=== PATIENT | male | born 1970 | race Caucasian/White ===

== ENCOUNTER → 2021-06-01 14:23 | Outpatient (CLI) | payer OTHER, SELFPAY ==
--- NOTE | 2021-06-01 14:25 | DI.CT.S_ITS ---
PROCEDURE: CT LE LT W CON INDICATIONS: CALC FX Displaced fracture left calcaneus TECHNIQUE: Noncontrast 1-1.5 mm axial sections acquired from above the tibiotalar joint to the bottom of the calcaneus, with coronal and sagittal reformats. COMPARISON: Outside Film, CR, XR FOOT 3+ VIEWS LEFT, 05/28/2021, 14:08. FINDINGS: Image quality: Excellent. Bones: As seen on previous left ankle and foot radiograph, there is an acute comminuted fracture involving entire calcaneus with fracture line seen extending to superior cortex of anterior and posterior calcaneus, posterior cortex of calcaneus near its Achilles tendon insertion and plantar aspect of posterior calcaneus near plantar fascia insertion. There are displacements at calcaneal fracture site with up to 8 mm diastasis in posterior medial aspect of calcaneal fracture site. Slight medial and laterally displaced fractured fragments are also seen. There is 5 mm depression in posterior superior calcaneal fracture site adjacent to posterior subtalar joint. No other fracture or dislocation is seen. No suspicious intraosseous lesion. Mild midfoot and hindfoot joint osteoarthritic changes are seen. Soft tissues: There is significant soft tissue swelling and edema surrounding calcaneal fracture site extending to dorsal and lateral aspect of midfoot. No abnormal soft tissue calcifications are seen. Small to moderate tibiotalar and subtalar joint effusion is seen, no calcified intra-articular loose body. Plantar fascia is grossly intact. Achilles tendon is intact. IMPRESSION: 1. Acute comminuted and slightly displaced fractures involving entire calcaneus as described above. No other fracture or dislocation. 2. Soft tissue swelling and edema surrounding ankle and hindfoot extending to dorsal and lateral aspect of midfoot. No abnormal soft tissue calcifications. No calcified intra-articular loose body. No gross full-thickness tendon rupture. Dictated by: Aureliano Lawrence M.D. on 06/01/2021 at 15:14 Approved by: Aureliano Lawrence M.D. on 06/01/2021 at 15:18
== END ==
PROVIDERS: Referring Provider Orthopaedic Surgery; Visit Provider Orthopaedic Surgery
DX: S92.012A Displaced fracture of body of left calcaneus, initial encounter for closed fracture (principal); M79.89 Other specified soft tissue disorders; X58.XXXA Exposure to other specified factors, initial encounter
CPT/HCPCS: 73700

== ENCOUNTER → 2021-06-10 09:28 | Outpatient (CLI) | payer OTHER, SELFPAY ==
[2021-06-10 11:24] LABS: COVID19 -Nasal RAPID Negative (Negative)
== END ==
PROVIDERS: Visit Provider Family Medicine Sleep Medicine
DX: Z20.822 Contact with and (suspected) exposure to COVID-19 (principal)
CPT/HCPCS: 87635; C9803

== ENCOUNTER 2021-06-11 08:47 | Day surgery (SDC) | payer OTHER, SELFPAY ==
[2021-06-04 13:25] VITALS: BMI 28.0
[2021-06-11] VITALS (7 sets, daily range): BP systolic 116–132; BP diastolic 66–99; PULSE 87–99; RESP 12–16; TEMP 36.2–36.3; O2SAT 96–100; BMI 28.0
[2021-06-11] MEDS: LACTATED RINGERS 1,000 ML 42 ML IV ×2 (09:18→12:38)
--- NOTE | 2021-06-11 10:07 | PM.PREOP ---
Pre-operative Note COVID-19 COVID-19 status: Negative Result date/Date tested (Pos, Neg/Pending): 06/10/21 Criteria for continued procedure: Possibility delay results in more complex future surgery or treatment, Increased loss of function and Delay expected to result in less-positive ultimate med/surg outcome Interval Note History & Physical reviewed/Exam performed by Physician: Yes Changes to H&P: No
--- NOTE | 2021-06-11 10:45 | SUR.PREOP ---
Addendum entered by Morenita Vickers R.N. 06/11/21 10:50: meds used during block: xylocaine 2% WITH Epinephrine- 1:100,OOO For local, Ropivicaine 0.5% -20ml with dexamethasone 10mg per each neve block by Dr Espana. Original Note: 06/11/2021-1030am. Pt moved to block room for nerve blocks by Dr Espana. Monitors and 2 liters nasal cannula applied. Dr Espana confirmed with pt and Rn, Popiteal/saphaneous block left (time out). Premed by Dr Espana done. patietn relaxed. Popiteal nerve block done at 1035am, saphanous done at 1035. Monitored vs every 5 minutes-no changes-see strip on progress sheet for vitals and ekg strip/NSR. 1038-procedure done, pt tolerated well. off monitors and oxygen , to OR directly.
[2021-06-11] MEDS: CEFAZOLIN 2 GM/20 ML SYRINGE IV (10:47)
--- NOTE | 2021-06-11 11:24 | PM.PROC.1 ---
Procedures Date/Time Date of procedure: 06/11/21 Time of procedure: 10:10 General Procedure description: Ultrasound guided popliteal sciatic AND saphenous (adductor canal) nerve blocks for post op pain control after left calcaneal ORIF by Dr. Sharma. Risk and benefits of procedure discussed with patient. ASA monitoring applied to patient. Oxygen given via nasal cannula. 2 mg Versed and 50 mcg fentanyl given for procedural sedation. Skin site was prepped with chlorhexidine and allowed to fully dry. Sterile gloves, mask, hat and probe cover were used to maintain sterility. 2% lidocaine and 30ga needle was used to make a small skin wheal at needle insertion site. Under ultrasound guidance, a 21ga 100mm Pajunk needle was directed near the division of the sciatic nerve into tibial and peroneal nerve in the popliteal fossa (lateral approach). Patient reported no parasthesias. After negative aspiration, 20 mL 0.5% ropivacaine and 10mg dexamethasone were injected around sciatic nerve. Similarly, the adductor canal was accessed under US guidance using a 100mm Pajunk needle. After negative aspiration, 20mL 0.5% ropivacaine with 10mg dexamethasone was injected. No parathesias. Patient tolerated procedure well. Upper photo: sciatic nerve at popliteal fossa; Lower photo: adductor canal at mid thigh
--- NOTE | 2021-06-11 11:29 | SUR.OPER ---
Lateral on a sotelo bag, head on pillow, gel axillary roll in place, bottom leg bent with gel pad under knee to foot, upper leg straight and supported with pillows. Upper arm supported by pillows and secured over bottom arm to padded arm board. Safety belt at hip, tape over blanket lower legs.
[2021-06-11] MEDS: BUPIVACAINE 0.25% (PF) 30 ML, EPINEPHrine 0.15 MG INJ (11:35)
--- NOTE | 2021-06-11 13:20 | DI.RAD.S_ITS ---
PROCEDURE: XR ANKLE LT MIN 3V INDICATIONS: LEFT HEAL FX REPAIR TECHNIQUE: 11 intraoperative fluoroscopic views of the ankle were acquired. COMPARISON: None. FINDINGS: Intraoperative fluoroscopic images of left ankle shows internal fixation of calcaneus with anatomic calcaneal alignment. IMPRESSION: Fluoro guidance was provided intraoperatively for ORIF of left calcaneus. Dictated by: Aureliano Lawrence M.D. on 06/11/2021 at 15:11 Approved by: Aureliano Lawrence M.D. on 06/11/2021 at 15:22
--- NOTE | 2021-06-11 13:37 | PM.OP.1 ---
Operative Date/Time/Diagnoses Date of procedure: 06/11/21 Time of procedure: 11:00 Pre-op diagnosis: Left intra-articular calcaneus fracture S92.012A Post-op diagnosis: same Procedure & Clinicians Procedure: Open reduction internal fixation left calcaneus fracture CPT code 69347 Same procedure as scheduled: Yes Indications: Patient is a 50-year-old male that fell off a ladder he sustained a closed displaced intra-articular left calcaneus fracture with 4-5 mm of displacement and depression of the lateral half of the posterior facet with varus calcaneal fracture pattern. Does not have any hard contradiction to surgery. We discussed options for treatment including non operative treatment and surgical options. He has been indicated for operative intervention open reduction internal fixation of his displaced intra-articular calcaneus fracture to restore alignment reduce the risk of developing posttraumatic arthritis and progressive malfunction. The risks and benefits of the procedure have been discussed with the patient given the opportunity to ask questions. The risks of surgery include but are not limited to infection, malunion, nonunion, persistence of pain, damage to nerves and blood vessels, posttraumatic arthritis, DVT, PE, cardiopulmonary complications and . The patient expressed a thorough understanding of the risks and benefits of surgery and has elected to proceed. Consent was signed in the office. Surgeon: Mary Sharma Click Yes if Unassisted: Yes Anesthesia Type: General, Peripheral nerve block and Local Operative Notes Findings: Displaced intra-articular calcaneus fracture with a depressed and rotated lateral half of the posterior facet. This was disimpacted and elevated and reduced. Additionally hindfoot was in varus. Combination of a 2.4 wire as a joystick and manipulation through the fracture restored hindfoot alignment. Fracture was stabilized with 1st a 4.0 cannulated screw across the posterior facet to lag the fracture then a left calcaneus sinus tarsi plate from the Arthrex set and a separate 3.5 screw across the tuberosity component. Closure Type: primary Specimen(s): none sent Prosthetic devices, grafts, tissues, transplants, or devices: Arthrex calcaneus percutaneous plate standard left with 3.5 nonlocking and locking screws 1x4.0 cannulated partially-threaded lag screw 1x3.5x54 mm screw across the tuberosity Estimated Blood Loss (mL): 30 Blood products transfused: none Tourniquet time (min): 87 Procedure in detail: Patient was seen in the preoperative area the site of surgery and informed consent were confirmed. The site of surgery was marked in the patient questions were answered. A regional anesthetic block was placed by the anesthesia team for postoperative pain control. Patient was then brought to the operating room by the anesthesia team positioned supine on the operative table. General endotracheal anesthesia was obtained. Tourniquet was placed on the upper aspect of the thigh and well padded. An SCD placed on the contralateral lower extremity. The patient's operative leg was then prepped and draped in the standard sterile fashion. Formal time-out procedure was performed confirming the patient's side and site of surgery and administration of appropriate preoperative antibiotics. Implants were present in the room and accounted for. Exsanguination with an Esmarch tourniquet was then inflated to 250 mmHg. The C-arm was brought in and initial images in the lateral, Broden and axial views were obtained. There was a depressed fracture of the lateral aspect of the posterior facet as well as some hindfoot varus. A sinus Tarsi approach was used for this intra-articular fracture. First step was that a at 2.4 K-wire was placed in the tuberosity from posterior lateral to distal medial to span the tuberosity fracture as depicted on the CT this ended just before the main fracture line and was provided joystick in the tuberosity. Then the sinus tarsi approach was performed with a incision from the distal tip of the fibula in line with the 4th ray. This was taken down through the skin and subcutaneous tissue. The fascia over the EDB was exposed and then the ED be was cut and reflected distally and temporarily tied with a 2-0 PDS to retracted out of the way. This exposed the sinus tarsi. A rongeur was used to remove soft tissue and expose the subtalar joint. The depressed and rotated lateral aspect of the posterior facet was visualized. The soft tissue dissection tool was used to dissect under the peroneal tendons and create a pocket for the lateral plate. Next a Cullman elevator was inserted in through the main fracture fragment and the hindfoot was brought into valgus using the Steinmann pin as a joystick to reduce the varus into neutral hindfoot alignment and then a no other K-wire was aimed and advanced across the tuberosity along the plantar calcaneus holding the hindfoot alignment. At this point the elevator was used to de rotate and elevate the lateral half of the posterior facet and reduce the articular part of the fracture. This was then pinned with 2 guide K-wires for the 4.0 cannulated screws. Next 1 of the K-wires was drilled over and a 4.0 partially threaded cannulated lag screw was placed across the posterior facet to reduce the posterior facet fracture component. Fluoroscopic the was checked on Broden views confirming excellent reduction of the posterior facet. Next the voices for the percutaneous plate were placed along the calcaneus and a lateral view was taken to determine appropriate plate choice. The standard plate was selected. This was slid down into the tissue pocket and care was taken to make sure the the peroneal tendons were well protected. The plate was provisionally pinned and then checked on imaging. Care was taken to make sure this was not crossing the calcaneal cuboid joint. Next 2 nonlocking cortical screws were placed anteriorly and posterior in the plate approximating to the bone then additional plate holes were filled with locking screws. Finally, to secure the separate tuberosity fragment a guidewire for the 4.0 cannulated screws was drilled across this and parallel to the 2.4 Steinmann pin that was holding the hindfoot alignment this was then overdrilled with a cannulated technique and then a solid 3.5 cortical screw 54 mm was placed. Final fluoroscopic imaging in lateral, Broden, axial and foot AP view confirmed appropriate alignment placement of hardware and anatomic reduction of the left calcaneus. The wound was thoroughly irrigated and the incision was repaired in a layered fashion using 0 Vicryl 2-0 Vicryl 4-0 Monocryl , 4-0 and 3-0 nylon. Xeroform gauze Webril and Bulky Hearn splint were applied. Patient was woken from anesthesia and taken to recovery room. Complications: none Post-operative Condition: stable Disposition: PACU Plan for aftercare: Nonweightbearing left lower extremity. Elevate above the heart level for as much as possible for the 1st 2 weeks after surgery. Prescriptions for pain medication has been sent to the pharmacy as well as anti nausea medication. Patient had a postoperative block that should help with pain control for 12-48 hours. Patient will start aspirin for DVT prophylaxis on postop day 1. Patient has no personal or family history of blood clots or hypercoagulability. Follow-up in 2 weeks.
== END 2021-06-11 15:00 | disposition home or self-care (01) ==
LOC: OR 08:48
PROVIDERS: PCP Student in an Organized Health Care Education/Training Program; Referring Provider Orthopaedic Surgery Foot and Ankle Surgery; Visit Provider Orthopaedic Surgery Foot and Ankle Surgery
PROC: (CPT 28415; principal; 2021-06-11 10:00)
DX: S92.012A Displaced fracture of body of left calcaneus, initial encounter for closed fracture (principal); W11.XXXA Fall on and from ladder, initial encounter; I10 Essential (primary) hypertension
CPT/HCPCS: 28415; 64450; 73610; 76000; J0171; J0690; J1100; J2250; J2704; J3010

== ENCOUNTER → 2022-06-11 10:06 | Outpatient (CLI) | payer OTHER, SELFPAY ==
[2022-06-11 11:52] LABS: Alanine Aminotransferase 42 IU/L (<50); Albumin 4.5 g/dL (3.5-5.0); Albumin Globulin Ratio 1.5 (1.0-2.8); Alkaline Phosphatase 69 U/L (38-126); Aspartate Aminotransferase 31 IU/L (17-59); BUN Creatinine Ratio 19.7 (6-22); Bilirubin Total 0.7 mg/dL (0.2-1.3); Blood Urea Nitrogen 14 mg/dL (9-20); Calcium 9.1 mg/dL (8.4-10.2); Carbon Dioxide 26 mmol/L (22-32); Chloride 101 mmol/L (98-107); Cholesterol 153 mg/dL (140-199); Estimated Glomerular Filt Rate > 60 mL/min (>60); Glucose 117 mg/dL (70-100); HDL Cholesterol 38 mg/dL (40-60); HEMOLYSIS < 15 (0-50); LDL Cholesterol Calculated 92 mg/dL (<100); Potassium 4.4 mmol/L (3.4-5.1); Sodium 139 mmol/L (137-145); Total Protein 7.5 g/dL (6.3-8.2); Triglycerides 114 mg/dL (35-150); Uric Acid 8.3 mg/dL (3.5-8.5)
== END ==
PROVIDERS: PCP Family Medicine; Referring Provider Family Medicine; Visit Provider Family Medicine
DX: E78.5 Hyperlipidemia, unspecified (principal); I10 Essential (primary) hypertension; M10.9 Gout, unspecified
CPT/HCPCS: 36415; 80053; 80061; 84153; 84550

== ENCOUNTER 2022-08-17 09:42 | Day surgery (SDC) | payer OTHER, SELFPAY ==
[2022-08-17] VITALS (7 sets, daily range): BP systolic 112–132; BP diastolic 86–97; PULSE 62–79; RESP 11–18; TEMP 36.1–36.6; O2SAT 95–100; BMI 28.0
--- NOTE | 2022-08-17 | PATH_ITS ---
[facility] Accession Number: [id number] No. of containers..02 Tissue . 01 Material submitted: . PART A: colon - DESCENDING COLON POLYP X2 PART B: rectum - RECTAL POLYP . 01 Diagnosis: A. Descending Colon Polyps: Serrated lesion, favor sessile serrated adenoma x1. Hyperplastic polyp x1. . B. Rectal Polyp: Hyperplastic polyp. MRV 08/19/2022 1241 Local . 01 Electronically signed: . Davian Tillman MD, PhD, Pathologist NPI- [id number] . 01 Gross description: . Part A: DESCENDING COLON POLYP X2: Received in formalin are 2 fragment(s) of rutledge, soft tissue measuring 1.0 x 0.2 x 0.2 cm to 0.2 x 0.2 x 0.2 cm submitted entirely in 1 cassette(s) Part B: RECTAL POLYP: Received in formalin is 1 fragment(s) of rutledge, soft tissue measuring 0.2 x 0.2 x 0.1 cm submitted entirely in 1 cassette(s) /CPE 08/18/2022 0643 Local . 01 Pathologist provided ICD-10: D12.4, K62.1 . 01 CPT . 959567, 385132 Specimen Comment: A courtesy copy of this report has been sent to [phone] Performed at: 01 [facility] [address] [place] [address], [place], [place] [id number] MD Jose A Salinas MD Phone: [phone]
[2022-08-17] MEDS: LACTATED RINGERS 1,000 ML 200 ML IV (10:32)
--- NOTE | 2022-08-17 11:47 | PM.HP.1 ---
History of Present Illness History of Present Illness Date Patient Seen: 08/17/22 Chief complaint: Colonoscopy Narrative: The patient presents for colorectal screening. They have never had any previous examination for such. No personal or family history of colon cancer. On further history denies any recent gastrointestinal symptoms. No nausea, vomiting, abdominal pain, loss of appetite, unexplained weight loss, change in bowel habits, or blood per rectum. [facility] Medical History Chicken pox (~1979) Fall from ladder (~05/2021) Fractures Gout (~2017) HTN (hypertension) (~2012) Hyperlipidemia Preventative health care Surgical History Anesthesia Broken foot Family History Father History of heart disease Hypertension Hyperlipidemia Mother Cancer Grandfather History of heart disease Grandmother History of heart disease Grandfather History of heart disease Grandmother History of heart disease Social History household members: spouse Smoking Status: Former smoker alcohol intake: current Meds Home Medications and Allergies Home Medications Medication Instructions Recorded Confirmed Type lisinopril 20 mg tablet 20 mg PO DAILY 06/11/21 06/11/22 History allopurinol 300 mg tablet 300 mg PO DAILY #90 tabs 06/11/22 Rx atorvastatin 20 mg tablet 20 mg PO 06/11/22 06/11/22 History Allergies Allergy/AdvReac Type Severity Reaction Status Date / Time No Known Drug Allergies Allergy Verified 06/11/22 08:47 Exam Vital Signs (past 8 hours): - 08/17/22 10:37 Temperature 97 F L Pulse Rate 79 Respiratory Rate 18 Blood Pressure 132/95 H Pulse Oximetry 98 Oxygen Delivery Method Room Air Oxygen Delivery Method Room Air Narrative Exam Narrative: General adult man alert oriented no acute distress Abdomen soft nontender nondistended Assessment & Plan Assessment & Plan narrative: The patient requires colorectal screening and colonoscopy is recommended. Technical details were discussed. Risks, benefits, alternatives explained. Risks including but not limited to myocardial infarction, aspiration, bleeding, pain, missed lesion, incomplete examination, need for further radiographic studies, colonic perforation, and need for major abdominal surgery were discussed. All questions were answered to their satisfaction, and they are in agreement with this plan.
--- NOTE | 2022-08-17 12:21 | PM.OP.COLON ---
Operative Date/Time/Diagnoses Date of procedure: 08/17/22 Time of procedure: 12:21 Pre-op diagnosis: Colorectal screening Post-op diagnosis: other (Colonic polyps x3) Procedure & Clinicians Study performed: Colonoscopy and polypectomy Same procedure as scheduled: Yes Indications: Colorectal screening Surgeon: Ruben Rebollar Procedure Notes Procedure in detail: The history and physical was performed/updated and the patient is ASA class is 2. The procedure was discussed in detail with the patient. Potential risks complications including infection, bleeding, missed diagnosis, perforation, need for surgery, and were explained. Their questions were answered and informed consent was obtained. Patient was brought to the procedure room and placed standard monitoring equipment. The patient's vital signs were monitored continuously throughout the entire procedure. Prior to starting time-out was performed. The patient was placed in the left lateral recumbent position. Procedural sedation was administered by anesthesia. Examination began with a thorough inspection of the perianal area there was no evidence of fissures, fistulae, external hemorrhoids or cutaneous malignancy. The colonoscopy scope was then placed into the anal canal and was advanced to the cecum, which was identified by the ileocecal valve, the appendiceal orifice and the confluence of the taenia. The scope was then slowly withdrawn examining colon thoroughly in all directions, irrigating it of any residual stool. Within the descending colon there were two 5 mm polyps both removed with cold snare. In the distal rectum there was a 3 mm polyp removed with cold snare. The remainder of the colon was unremarkable. The patient tolerated the procedure well. They will be discharged once criteria are met. The prep was of good/excellent quality. The withdrawl time was 11 minutes. Specimen(s): other (Descending colon and rectal polyps) Impression: Colonic polyps x3 Post-procedure Plan for aftercare: Follow-up is dependent on pathology findings Disposition: same day surgery
== END 2022-08-17 13:05 | disposition home or self-care (01) ==
PROVIDERS: PCP Family Medicine; Referring Provider Surgery; Visit Provider Surgery
PROC: 0DJD8ZZ Inspection of Lower Intestinal Tract, Via Natural or Artificial Opening Endoscopic (ICD-10-PCS; CPT 45378; principal; 2022-08-17 10:45)
DX: Z12.11 Encounter for screening for malignant neoplasm of colon (principal); D12.4 Benign neoplasm of descending colon; K62.1 Rectal polyp
CPT/HCPCS: 45385; J2704; J3010

== ENCOUNTER 2024-02-21 17:47 | Emergency (ER) | payer OTHER, SELFPAY ==
[2024-02-21] VITALS (8 sets, daily range): BP systolic 107–157; BP diastolic 77–98; PULSE 63–79; RESP 18; TEMP 36.6–36.9; O2SAT 97–99; BMI 26.9
[2024-02-21 22:19] LABS: Add Manual Diff / Slide Review NO; Basophils Absolute Auto 100 /uL (0-100); Basophils Percent Auto 0.7 % (0-2); Eosinophils Absolute Auto 200 /uL (0-450); Eosinophils Percent Auto 2.5 % (2-4); Hematocrit 43.5 % (41-53); Hemoglobin 15.1 g/dL (13.5-17.5); Lymphocytes Absolute Auto 1700 /uL (1100-4500); Lymphocytes Percent Auto 20.9 % (25-40); Mean Corpuscular HGB Conc 34.7 % (30-36); Mean Corpuscular Hemoglobin 31.8 PG (26-34); Mean Corpuscular Volume 91.8 fL (80-100); Monocytes Absolute Auto 900 /uL (0-900); Monocytes Percent Auto 11.3 % (3-14); Neutrophils Absolute Auto 5400 /uL (1500-7000); Neutrophils Percent Auto 64.6 % (50-75); Platelet Count 208 X10^3/uL (150-400); Red Blood Cell Count 4.74 X10^6/uL (4.5-5.9); Red Cell Distribution Width 13.4 % (11.6-14.8); White Blood Cell Count 8.3 X10^3/uL (4.5-11.0)
[2024-02-21 22:28] LABS: Alanine Aminotransferase 35 IU/L (<50); Albumin 4.2 g/dL (3.5-5.0); Albumin Globulin Ratio 1.6 (1.0-2.8); Alkaline Phosphatase 54 U/L (38-126); Aspartate Aminotransferase 33 IU/L (17-59); BUN Creatinine Ratio 23.9 (6-22); Bilirubin Total 0.7 mg/dL (0.2-1.3); Blood Urea Nitrogen 17 mg/dL (9-20); Calcium 9.4 mg/dL (8.4-10.2); Carbon Dioxide 26 mmol/L (22-32); Chloride 103 mmol/L (98-107); Estimated Glomerular Filt Rate > 60 mL/min (>60); Globulin 2.7 g/dL (1.7-4.1); Glucose 108 mg/dL (70-100); HEMOLYSIS 22 (0-50); Lipase 119 U/L (23-300); Potassium 3.6 mmol/L (3.4-5.1); Sodium 138 mmol/L (137-145); Total Protein 6.9 g/dL (6.3-8.2)
--- NOTE | 2024-02-21 22:51 | ED_ITS ---
HPI - Nausea/Vomiting/Diarrhea General Chief complaint: Nausea/Vomiting/Diarrhea Stated complaint: diarrhea for two weeks Time Seen by Provider: 02/21/24 21:39 Source: patient Mode of arrival: Ambulatory History of Present Illness HPI Narrative: Patient is a 53-year-old male who is here for evaluation of 2 weeks of diarrhea. No recent travel. No recent antibiotics. No abdominal pain. No vomiting. No fevers. Has been seen at an outside walk-in clinic. Had stool samples done that were negative. A stool culture still pending. Has not tried any antidiarrheal medicines. Contacted his primary doctor's office nurse today who advised that he come to the emergency department for evaluation. Related Data Previous Rx's Medication Instructions Recorded atorvastatin 20 mg tablet 20 mg PO BEDTIME #90 tabs 03/12/23 lisinopril 20 mg tablet 20 mg PO DAILY #90 tabs 03/12/23 allopurinol 300 mg tablet 300 mg PO DAILY #90 tabs 06/30/23 Allergies Allergy/AdvReac Type Severity Reaction Status Date / Time No Known Drug Allergies Allergy Verified 06/17/23 08:38 Review of Systems Review of Systems ROS Unobtainable: All systems reviewed & are unremarkable except as noted in HPI and below Patient History Medical History Dysplastic colon polyp Well adult exam Fractures Chicken pox (~1979) Preventative health care Gout (~2017) Hyperlipidemia Fall from ladder (~05/2021) HTN (hypertension) (~2012) Surgical History Anesthesia Broken foot Family History Father History of heart disease Hypertension Hyperlipidemia Mother Cancer Grandfather History of heart disease Grandmother History of heart disease Grandfather History of heart disease Grandmother History of heart disease Social History household members: spouse Smoking Status: Former smoker alcohol intake: current Smoking Status: Former smoker alcohol intake frequency: a few times a week Substance Use Type: does not use Exam Initial Vital Signs Initial Vital Signs: Vital Signs Temperature 97.9 F 02/21/24 17:55 Pulse Rate 79 02/21/24 17:55 Respiratory Rate 18 02/21/24 17:55 Blood Pressure 141/92 H 02/21/24 17:55 Pulse Oximetry 99 02/21/24 17:55 Oxygen Delivery Method Room Air 02/21/24 17:55 HENMT Head: normal to inspection and normocephalic Resp Effort & Inspection: normal respiratory effort Cardio Rate: regular rate GI Inspection: normal to inspection and non-distended Neuro General: patient alert, patient awake and moves all extremities Course Orders Ordered: ED Orders 02/21/24 22:10 Complete Blood Count AUTO DIFF Stat Comprehensive Metabolic Panel Stat Lipase Stat Discontinued Medications Loperamide HCl (Loperamide 2 Mg Capsule) 4 mg PO NOW ONE Stop: 02/21/24 22:58 Last Admin: 02/21/24 23:11 Dose: 4 mg Documented By: Vital Signs Vital signs: Vital Signs - 8 hr 02/21/24 19:57 02/21/24 21:30 02/21/24 21:30 Temperature Pulse Rate 67 66 Respiratory Rate 18 Blood Pressure 157/98 H 142/84 H Pulse Oximetry 99 98 Oxygen Delivery Method Room Air 02/21/24 22:00 02/21/24 22:00 02/21/24 22:30 Temperature Pulse Rate 66 Respiratory Rate 18 Blood Pressure 109/77 107/77 Pulse Oximetry 98 Oxygen Delivery Method 02/21/24 22:30 02/21/24 23:00 02/21/24 23:01 Temperature Pulse Rate 63 65 Respiratory Rate 18 Blood Pressure 126/90 Pulse Oximetry 97 97 Oxygen Delivery Method 02/21/24 23:01 02/21/24 23:14 Temperature 98.4 F Pulse Rate 63 65 Respiratory Rate 18 18 Blood Pressure 126/78 Pulse Oximetry 97 98 Oxygen Delivery Method Room Air MDM - Nausea/Vomiting/Diarrhea Lab Data Attestation: I reviewed the patient's lab results. 02/21/24 22:10 02/21/24 22:10 Labs: Lab Results 02/21/24 Range/Units 22:10 WBC 8.3 (4.5-11.0) X10^3/uL RBC 4.74 (4.5-5.9) X10^6/uL Hgb 15.1 (13.5-17.5) g/dL Hct 43.5 (41-53) % MCV 91.8 (80-100) fL MCH 31.8 (26-34) PG MCHC 34.7 (30-36) % RDW 13.4 (11.6-14.8) % Plt Count 208 (150-400) X10^3/uL Neut % (Auto) 64.6 (50-75) % Lymph % (Auto) 20.9 L (25-40) % [place] % (Auto) 11.3 (3-14) % Eos % (Auto) 2.5 (2-4) % Baso % (Auto) 0.7 (0-2) % Neut # (Auto) 5400 (6894-0304) /uL Lymph # (Auto) 1700 (8902-0210) /uL [place] # (Auto) 900 (0-900) /uL Eos # (Auto) 200 (0-450) /uL Baso # (Auto) 100 (0-100) /uL Sodium 138 (137-145) mmol/L Potassium 3.6 (3.4-5.1) mmol/L Chloride 103 (98-107) mmol/L Carbon Dioxide 26 (22-32) mmol/L BUN 17 (9-20) mg/dL Creatinine 0.71 (0.66-1.25) mg/dL Estimated GFR > 60 (>60) mL/min BUN/Creatinine Ratio 23.9 H (6-22) Glucose 108 H (70-100) mg/dL Calcium 9.4 (8.4-10.2) mg/dL Total Bilirubin 0.7 (0.2-1.3) mg/dL AST 33 (17-59) IU/L ALT 35 (<50) IU/L Alkaline Phosphatase 54 (38-126) U/L Total Protein 6.9 (6.3-8.2) g/dL Albumin 4.2 (3.5-5.0) g/dL Globulin 2.7 (1.7-4.1) g/dL Albumin/Globulin Ratio 1.6 (1.0-2.8) Lipase 119 (23-300) U/L [facility] Narrative Medical decision making narrative: Labs are unremarkable and vital signs are unremarkable. No recent travel or antibiotics. No indication for antibiotics today. He was not been on any antidiarrheal medicines so we discussed the use of these. Recommended that he contact his primary doctor for a follow-up and to follow up on the results of the stool culture. Patient is not dehydrated and no indication for admission to the hospital. Discharge Plan Departure Patient Disposition: Home Clinical Impression: Diarrhea Instructions: Diarrhea (Alternative Therapy), Diarrhea Activity Restrictions/Additional Instructions: Continue to take all of your medications as directed. I recommend that you use Imodium/loperamide to help with the diarrhea. This can be purchased [id number]. You were given your 1st dose here in the ER this evening. Contact your primary doctor for follow-up. Return to the emergency department for new symptoms. Prescriptions: No Action lisinopril 20 mg tablet 20 mg PO DAILY Qty: 90 3RF atorvastatin 20 mg tablet 20 mg PO BEDTIME Qty: 90 3RF allopurinol 300 mg tablet 300 mg PO DAILY Qty: 90 3RF Referrals: Abdelrahman Zepeda DO [Primary Care Provider] - Stand Alone Forms: Patient Portal/API
[2024-02-21] MEDS: LOPERAMIDE 2 MG CAPSULE 4 MG PO (23:11)
== END 2024-02-21 23:15 | disposition home or self-care (01) ==
PROVIDERS: Emergency Provider Emergency Medicine; PCP Family Medicine
DX: R19.7 Diarrhea, unspecified (principal)
CPT/HCPCS: 36415; 80053; 83690; 85025; 99283; 99284

== ENCOUNTER → 2024-02-24 09:06 | Outpatient (CLI) | payer OTHER, SELFPAY ==
[2024-02-24 15:45] LABS: Adenovirus F 40/41 Not Detected (Not Detect); Astrovirus Not Detected (Not Detect); Campylobacter Not Detected (Not Detect); Clostridium difficile toxin AB Not Detected (Not Detect); Cryptosporidium Not Detected (Not Detect); Cyclospora cayetanensis Not Detected (Not Detect); Entamoeba histolytica Not Detected (Not Detect); Enteroaggregative E.coli Not Detected (Not Detect); Enteropathogenic E.coli Not Detected (Not Detect); Enterotoxigenic E.coli It/st Not Detected (Not Detect); Giardia lamblia Not Detected (Not Detect); Norovirus GI/GII Not Detected (Not Detect); Plesiomonsa shigelloides Not Detected (Not Detect); Rotavirus A Not Detected (Not Detect); Salmonella Not Detected (Not Detect); Sapovirus Not Detected (Not Detect); Shiga-like toxin-prod E.coli Not Detected (Not Detect); Shigella/Enteroinvasive E.coli Not Detected (Not Detect); Vibrio Not Detected (Not Detect); Vibrio cholerae Not Detected (Not Detect); Yersinia enterocolitica Not Detected (Not Detect)
== END ==
PROVIDERS: PCP Family Medicine; Referring Provider Physician Assistant; Visit Provider Physician Assistant
DX: K52.9 Noninfective gastroenteritis and colitis, unspecified (principal); R19.7 Diarrhea, unspecified
CPT/HCPCS: 87507

== ENCOUNTER → 2024-03-02 08:24 | Outpatient (CLI) | payer OTHER, SELFPAY | PROVIDERS: PCP Family Medicine; Referring Provider Physician Assistant; Visit Provider Physician Assistant | DX: R19.7 Diarrhea, unspecified (principal) | CPT/HCPCS: 87177 ==

== ENCOUNTER → 2024-03-27 06:42 | Outpatient (CLI) | payer OTHER, SELFPAY ==
--- NOTE | 2024-03-27 06:43 | DI.US.S_ITS ---
PROCEDURE: US ABDOMEN LIMITED INDICATIONS: DIARRHEA TECHNIQUE: Real-time scanning was performed of the abdominal and retroperitoneal organs, with image documentation. COMPARISON: None. FINDINGS: Liver: Measures 14.3 cm. Increased in echogenicity. Gallbladder: No gallstones. No wall thickening. No pericholecystic edema. Negative sonographic Samuel's sign. Biliary ducts: Extrahepatic bile duct caliber measures 8 mm. Normal is 6-7 mm or less in diameter, or 10 mm or less post-cholecystectomy. Pancreas: Visualized portions of the pancreas are sonographically normal. IMPRESSION: 1. Increased hepatic echogenicity most consistent with hepatic steatosis. Other forms of hepatocellular disease could have similar appearance. 2. No acute cholecystitis. No gallstones. 3. CBD appears mildly dilated. -Recommend correlation with serum bilirubin. MRCP or MRI pancreas with MRCP would be helpful for further evaluation. Dictated by: Duy Ca M.D. on 03/27/2024 at 23:20 Approved by: Duy Ca M.D. on 03/27/2024 at 23:22
== END ==
PROVIDERS: PCP Family Medicine; Referring Provider Physician Assistant; Visit Provider Physician Assistant
DX: R19.7 Diarrhea, unspecified (principal)
CPT/HCPCS: 76705

== ENCOUNTER → 2024-04-08 13:00 | Outpatient (CLI) | payer OTHER, SELFPAY ==
--- NOTE | 2024-04-08 13:01 | DI.MRI.S_ITS ---
PROCEDURE: MR AB PANCREATIC/MRCP PROTOCOL INDICATIONS: RUQ ABDOMINAL PAIN, DIARRHEA, DILATION BILE DUCT TECHNIQUE: Coronal HASTE through the abdomen, axial 2-D FLASH in- and [id number], and breath-hold T2 FSE with fat saturation through the biliary system and pancreas. Oblique coronal and axial thin-slice HASTE, radial thick-slab HASTE centered on the extrahepatic bile ducts. Axial T1 pre and postcontrast vibe and coronal T1 postcontrast vibe. COMPARISON: [facility], , US ABDOMEN LIMITED, 03/27/2024, 7:10. FINDINGS: Image quality: Diagnostic. Gallbladder: No gallstones or wall thickening. Biliary ducts: No significant biliary dilation. CBD measures 0.7 cm, (11/23). The most distal CBD is is tapered. No filling defect demonstrated. No intrahepatic biliary ductal dilatation. Pancreas: No ductal dilation. No mass or cystic lesion. No restricted diffusion. OTHER: Lung bases: Unremarkable. Liver: No solid mass. A few small T2 hyperintense cysts. Spleen: Size is within normal limits. Adrenal Glands: No adrenal nodules. Kidneys and Ureters: No hydronephrosis. No solid mass. No complex renal cystic lesion which requires follow up. Stomach and Bowel: No dilated loops of bowel. The appendix is not dilated. Peritoneum: No abnormal intraperitoneal fluid. No free air. Ventral Wall: No hernia. Abdominal Nodes: No retroperitoneal or mesenteric adenopathy by size criteria. Vessels: Aorta and inferior vena cava are normal in size. Bones: No aggressive osseous abnormality. IMPRESSION: 1. Incidental pancreas divisum. 2. No significant biliary ductal dilatation. No pancreatic ductal dilatation. 3. No mass. No choledocholithiasis. Dictated by: Duy Ca M.D. on 04/09/2024 at 8:58 Approved by: Duy Ca M.D. on 04/09/2024 at 9:07
== END ==
PROVIDERS: PCP Family Medicine; Referring Provider Physician Assistant; Visit Provider Physician Assistant
DX: K83.8 Other specified diseases of biliary tract (principal); R19.7 Diarrhea, unspecified; R10.10 Upper abdominal pain, unspecified; Q45.3 Other congenital malformations of pancreas and pancreatic duct
CPT/HCPCS: 74183; A9579